=== PATIENT | female | born 1955 | race Caucasian/White ===

== ENCOUNTER 2017-10-31 16:52 | Emergency (ER) | payer OTHER ==
[2017-10-31 17:46] VITALS: BP 147/87
--- NOTE | 2017-10-31 18:33 | UC ---
Bite Injury/Animal HPI - HPI Summary HPI Summary: This patient is a 62 year old F presenting to [facility] with a chief complaint of an allergic reaction to a hornet sting since 10/25/2017. Rash has worsened by spreading and increasing in itchiness every day. Patient reports swelling immediately after the bite which has since resolved. Patient also reports itchiness and rash on her extremities. Patient denies pain. She used generic Benadryl and Cortisone cream with no relief. - History of Current Complaint Chief Complaint: [place] Stated Complaint: BUG STING ON FOOT Time Seen by Provider: 10/31/17 17:50 Hx Obtained From: Patient Pain Intensity: 0 Pain Scale Used: 0-10 Numeric Onset/Duration: Sudden Onset, Lasting Days - 10/25/2017, Still Present Type of Bite: Wild Animal - Hornet Has Animal Been Immunized?: N/A - Allergies/Home Medications Allergies/Adverse Reactions: Allergies Allergy/AdvReac Type Severity Reaction Status Date / Time hornet venom Allergy Rash And Verified 10/31/17 17:37 Itching PMH/Surg Hx/FS Hx/Imm Hx Endocrine History: Diabetes - Denies Cardiovascular History: Cardiac Disease - Denies - Surgical History Surgical History: Yes Surgery Procedure, Year, and Place: c section - Family History Known Family History: Negative: Hypertension, Diabetes - Social History Occupation: Employed Full-time Lives: With Family Alcohol Use: Weekly Substance Use Type: None Smoking Status (MU): Never Smoked Tobacco Review of Systems Constitutional: Fever - Denies Skin: Rash - Swelling and itchiness on her extremities. They have worsened every day. All Other Systems Reviewed And Are Negative: Yes Physical Exam - Summary Physical Exam Summary: VITAL SIGNS: Reviewed. GENERAL: Patient is a well-developed and nourished FEMALE who is lying comfortable in the stretcher. Patient is not in any acute respiratory distress. HEAD AND FACE: Normocephalic EYES: PERRLA, EOMI x 2. EARS: Hearing grossly intact. MOUTH: Oropharynx within normal limits. NECK: Supple, trachea is midline, no adenopathy, no JVD, no carotid bruit. CHEST: Symmetric, no tenderness at palpation LUNGS: Clear to auscultation bilaterally. No wheezing or crackles. CVS: Regular rate and rhythm, S1 and S2 present, no murmurs or gallops appreciated. ABDOMEN: Soft, non-tender. Bowel sounds are normal. No abdominal abnormal pulsations. EXTREMITIES: Full ROM in all major joints, no edema, no cyanosis or clubbing. NEURO: Alert and oriented x 3. No acute neurological deficits. Speech is normal and follows commands. SKIN: Erythematous patches with papules with irregular borders in lower extremities and forearms. No vesicular legions. Triage Information Reviewed: Yes Vital Signs: Initial Vital Signs Temp 98.1 F 10/31/17 17:39 Pulse 70 10/31/17 17:39 Resp 17 10/31/17 17:39 BP 147/87 10/31/17 17:39 Pulse Ox 99 10/31/17 17:39 Vital Signs Reviewed: Yes Bite Injury Course/Dx - Course Course Of Treatment: 52-year-old female presents to the urgent care with a chief complaint of having an allergic reaction after she was stung by a bee. However the physical exam shows probably a contact dermatitis more than allergic reaction to bees. The patient was given prednisone by mouth and topical. She will follow-up with dermatology in the next couple days. She was instructed to return to the urgent care or the emergency department if she develops any fever, chills or worsening of symptoms. She understands and agrees. - Differential Dx/Diagnosis Provider Diagnoses: Contact Dermatitis Discharge - Sign-Out/Discharge Documenting (check all that apply): Patient Departure - D/C All imaging exams completed and their final reports reviewed: No Studies - Discharge Plan Condition: Stable Disposition: HOME Prescriptions: predniSONE TAB* [Deltasone 20 MG TAB*] 40 mg PO DAILY #10 tab Triamcinolone 0.1% CREAM (NF) [Kenalog 0.1% Cream (NF)] 1 applic TOPICAL BID # 60 gm Patient Education Materials: Contact Dermatitis (ED) Referrals: Darius Rodrigues MD [Primary Care Provider] - Additional Instructions: Take medications as instructed and adhere to plan Take Acetaminophen or ibuprofen for pain or fever Increase your fluid intake Return to the or go to the emergency department if symptoms worsen Follow-up with primary care physician in next 2-3 days - Billing Disposition and Condition Condition: STABLE Disposition: Home - Attestation Statements Document Initiated by Scribe: Yes Documenting Scribe: Oc Briggs Provider For Whom Scribe is Documenting (Include Credential): Stalin Alanis MD Scribe Attestation: Oc Pinto, scribed for Stalin Alanis MD on 10/31/17 at 2033. Scribe Documentation Reviewed: Yes Provider Attestation: The documentation as recorded by the scribeOc accurately reflects the service I personally performed and the decisions made by me, Stalin Alanis MD
== END 2017-10-31 18:15 | disposition home or self-care (01) ==
LOC: UCEAST 16:52
DX: T63.451A Toxic effect of venom of hornets, accidental (unintentional), initial encounter (principal); L25.8 Unspecified contact dermatitis due to other agents; Y92.9 Unspecified place or not applicable; Z91.038 Other insect allergy status
CPT/HCPCS: 99212; G0463